=== PATIENT | female | born 1975 | race Asian ===

== ENCOUNTER 2020-05-17 08:14 | Outpatient (CLI) | payer BC | END 2020-05-17 08:15 | disposition home or self-care (01) | LOC: CSHMAMMO 08:14 | PROVIDERS: ATTEND Family Medicine | DX: Z12.31 Encounter for screening mammogram for malignant neoplasm of breast (principal) | CPT/HCPCS: 77063; 77067 ==

== ENCOUNTER 2021-09-02 14:42 | Outpatient (CLI) | payer BC | END 2021-09-02 14:43 | disposition home or self-care (01) | LOC: CSHMAMMO 14:42 | PROVIDERS: ATTEND Family Medicine | DX: Z12.31 Encounter for screening mammogram for malignant neoplasm of breast (principal); Z80.3 Family history of malignant neoplasm of breast; Q83.9 Congenital malformation of breast, unspecified | CPT/HCPCS: 77063; 77067 ==